=== PATIENT | male | born 2000 | race Caucasian/White ===

== ENCOUNTER 2019-11-01 03:02 | Emergency (ER) | payer BC ==
[2019-11-01] MEDS ORDERED: Lorazepam 2 MG/ML VIAL ONE (03:25)
[2019-11-01 04:02] LABS: #Basophils 0.1 thou/uL (0.0-0.2); #Eosinphils 0.5 thou/uL (0.0-0.7); #Lymphocytes 2.3 thou/uL (1.20-3.40); #Monocytes 0.7 thou/uL (0.11-0.59); #Neutrophils 3.7 thou/uL (1.40-6.50); %Basophils 1.5 % (0.0-1.0); %Eosinophils 6.3 % (0.0-10.0); %Lymphocytes 32.1 % (28.0-48.0); %Monocytes 9.7 % (0.0-4.0); %Neutrophils 50.4 % (31.0-61.0); Hemoglobin 16.2 g/dL (14.0-18.0); Mean Corpuscular Hemoglobin 30.1 pg (25.0-35.0); Mean Corpuscular Volume 88.6 fL (78.0-98.0); Mean Platelet Volume 8.4 fL (7.4-10.4); Platelet Count 200 thou/uL (130-400); RBC Distribution Width 10.5 % (11.5-14.5); Red Blood Cell (RBC) Count 5.38 mill/uL (4.00-5.20); White Blood Cell (WBC) Count 7.2 thou/uL (4.8-10.8)
[2019-11-01 04:25] LABS: Acetaminophen Less than 6.0 mcg/mL (10.0-30.0); Alcohol Less than 10 mg/dL (Less than 10); Salicylate Less than 8.0 mg/dL (15.0-30.0)
[2019-11-01 04:27] LABS: ALT (SGPT) 10 U/L (8-55); AST (SGOT) 21 U/L (5-34); Albumin 4.5 g/dL (3.5-5.0); Alkaline Phosphatase 63 U/L (50-130); Anion Gap 14 mmol/L (10-20); BUN (Urea Nitrogen) 12 mg/dL (8.9-20.6); Bilirubin, Total 0.6 mg/dL (0.2-1.2); Calc. Creatinine Clearance 0 mL/min (70-130); Calcium 9.1 mg/dL (7.8-10.44); Carbon Dioxide 22 mmol/L (22-29); Chloride 105 mmol/L (98-107); Estimated GFR-MDRD 87; Globulin 2.9 g/dL (2.4-3.5); Glucose 95 mg/dL (70-105); Potassium 3.6 mmol/L (3.5-5.1); Protein, Total 7.4 g/dL (6.0-8.3); Sodium 137 mmol/L (136-145)
[2019-11-01 05:03] LABS: Amphetamine Not Detected (NotDetected); Barbiturates Screen Not Detected (NotDetected); Benzodiazepine Screen Not Detected (NotDetected); Cocaine Metabolite Screen Not Detected (NotDetected); Medtox Control Line Valid? VALID (VALID); Medtox Reader # READER 1; Methadone Not Detected (NotDetected); Methamphetamine Not Detected (NotDetected); Opiate Screen Not Detected (NotDetected); Oxycodone Screen Not Detected (NotDetected); Phencyclidine (PCP) Not Detected (NotDetected); THC/Cannabinoid Screen Not Detected (NotDetected); Tricyclic Screen Not Detected (NotDetected)
--- NOTE | 2019-11-01 08:18 | CT ---
PRELIMINARY REPORT/[facility]/EMERGENCY AFTER HOURS PROCEDURE: EXAM: CT Head Without Intravenous Contrast. CLINICAL HISTORY: GOT UP TO GO TO THE RESTROOM THEN FELL BACK ALL OF A SUDDEN. PT SAID IT FELT LIKE I COULDNT MOVE OR D IDNT HAVE CONTROL OVER MY BODY. HAS NOT HAD ANY ALCOHOL OR DRUGS TODAY. NURSE NOTES SLURRED SPEECH, D IFFICULTY GETTING HIS WORDS OUT, AND A FACIAL DROOP ON THE RIGHT SIDE. LAST SEEN NORMAL AT 0230. TECHNIQUE: Axial computed tomography images of the head/brain without intravenous contrast. COMPARISON: None provided. FINDINGS: BRAIN: No acute intraparenchymal hemorrhage. No mass lesion. No CT evidence for acute territorial infarct. N o midline shift or extra-axial collection. VENTRICLES: No hydrocephalus. ORBITS: The orbits are unremarkable. SINUSES AND MASTOIDS: A small amount of mucosal thickening is present within the periphery of both maxillary sinuses. SOFT TISSUES: No significant facial or scalp soft tissue swelling evident. No radiopaque foreign body is seen. BONES: No acute skull fracture. IMPRESSION: 1. Mild bilateral maxillary sinus disease. 2. An otherwise negative unenhanced CT scan of the head. ELECTRONICALLY SIGNED BY: Serafin Glaser MD Nov 01, 2019 3:22:10 AM CDT This report is intended for review by the ordering physician only, in accordance of law. If you recei ve this report in error, please call [facility] at [phone]. FINAL REPORT BRAIN CT WITHOUT IV CONTRAST EMERGENCY AFTER HOURS EXAM: FINDIGNS/IMPRESSION: Sinus mucosal disease. No mass or bleed, or other acute process. This report is in agreement with preliminary report by [facility]. POS: RRE
== END 2019-11-01 05:15 | disposition home or self-care (01) ==
LOC: ERS 03:02
DX: R55 Syncope and collapse (principal); R56.9 Unspecified convulsions; R47.81 Slurred speech
CPT/HCPCS: 36416; 70450; 80053; 80306; 80307; 85025; 93005; 96374; J2060

== ENCOUNTER 2020-11-03 12:24 | Emergency (ER) | payer BC ==
[2020-11-04 01:01] LABS: SARS-CoV-2 PCR by NAA Not Detected (NotDetected)
== END 2020-11-03 16:28 | disposition home or self-care (01) ==
LOC: ERS 12:24
DX: J02.9 Acute pharyngitis, unspecified (principal); Z20.822 Contact with and (suspected) exposure to COVID-19
CPT/HCPCS: 87081; 87430; 99284; U0003; U0005

== ENCOUNTER 2021-01-09 12:21 | Emergency (ER) | payer OTHER ==
[2021-01-09] MEDS ORDERED: Lidocaine 1% w/Epinephrine 1:100K 20 ML VIAL ONE (13:28)
[2021-01-09] MEDS ORDERED: Acetaminophen 500 MG TAB ONE (15:00)
[2021-01-09] MEDS ORDERED: Ibuprofen 800 MG TAB ONE (15:00)
== END 2021-01-09 15:04 | disposition home or self-care (01) ==
LOC: ERS 12:21
DX: S01.01XA Laceration without foreign body of scalp, initial encounter (principal); W19.XXXA Unspecified fall, initial encounter
CPT/HCPCS: 12001; 36416; 70450